=== PATIENT | male | born 1980 | race African-American/Black ===

== ENCOUNTER 2017-12-06 20:15 | Inpatient (IN) | payer SELFPAY ==
[~2017-12-06] VITALS: Ht 182.9 cm; Wt 79.2 kg
[~2017-12-06 20:15] MED LIST: AMOX875T2 PO; IBUP-232 PO
[2017-12-06 20:16] VITALS: BP 131/65; PULSE 96; RESP 22; TEMP 103; O2SAT 97
[2017-12-06] MEDS ORDERED: ACETAMINOPHEN 325 MG TAB PO ONE (20:45)
--- NOTE | 2017-12-06 22:01 | RADRPT ---
EXAM DATE/TIME: 12/06/2017 21:07 [place] COMPARISON: No previous studies available for comparison. INDICATIONS : Left side chest pain. Fever. Cough. MEDICAL HISTORY : Smoker. SURGICAL HISTORY : None. ENCOUNTER: Initial ACUITY: 2 days PAIN SCORE: 10/10 LOCATION: Left chest FINDINGS: There is dense consolidation in the left upper lobe inferiorly and patchy basilar air space disease a s well. CONCLUSION: 1. Left upper lobe pneumonia measuring up to 13 cm in length with patchy perihilar and basilar bronch opneumonia as well. Mike Luna MD on December 06, 2017 at 21:58 Board Certified Radiologist. This report was verified electronically.
[2017-12-06 22:55] VITALS: BP 120/64; PULSE 83; RESP 16; TEMP 102.9; O2SAT 97
[2017-12-06 23:05] LABS: AUTOMATED NEUTROPHIL # 14.9 TH/MM3 (1.8-7.7); BASOPHIL % 0.3 % (0.0-2.0); HEMATOCRIT 37.4 % (39.0-51.0); HEMOGLOBIN 12.9 GM/DL (13.0-17.0); LYMPH % 6.7 % (9.0-44.0); LYMPHOCYTE # 1.2 TH/MM3 (1.0-4.8); MEAN CELL VOLUME 87.6 FL (80.0-100.0); MEAN CORPUSCULAR HEMOGLOBIN 30.1 PG (27.0-34.0); MEAN CORPUSCULAR HGB CONC 34.4 % (32.0-36.0); MEAN PLATELET VOLUME 8.3 FL (7.0-11.0); MONO % 6.1 % (0.0-8.0); NEUT % 86.9 % (16.0-70.0); PLATELET COUNT 192 TH/MM3 (150-450); RED BLOOD COUNT 4.27 MIL/MM3 (4.50-5.90); RED CELL DISTRIBUTION WIDTH 13.5 % (11.6-17.2); WHITE BLOOD COUNT 17.1 TH/MM3 (4.0-11.0)
--- NOTE | 2017-12-06 23:05 | PD ---
HPI Chief Complaint: Fever Time Seen by Provider: 22:52 Travel History International Travel<30 days: No Contact w/Intl Traveler<30days: No Traveled to known affect area: No History of Present Illness HPI 37-year-old male came to the emergency room with history of fever, cough, vomiting and body aches for 4-5 days. Patient says he has not feeling better. Patient had a temperature 103 in triage. There was workup initiated in triage. Patient appears to be in moderate distress. He was given Tylenol in triage and his repeat temperature is 102.5. Patient is awake and answering questions appropriately. He has history of cocaine and marijuana abuse. He is a smoker although he says he has not been able to smoke during his illness. He did not receive the flu shot. He also has some left-sided chest pain worse upon inspiration. [facility] Past Medical History Narrative Medical List of his past medical, surgical, social and family history is reviewed from the nursing note. Blood Disorders: No Cancer: No Cardiovascular Problems: No Chemotherapy: No Diminished Hearing: No Endocrine: No Genitourinary: No Immune Disorder: No Musculoskeletal: No Neurologic: No Psychiatric: No Respiratory: No Radiation Therapy: No Past Surgical History AICD: No Joint Replacement: No Neurologic Surgery: Yes (BRAIN SURGERY) Pacemaker: No Other Surgery: Yes Social History Alcohol Use: Yes (EVERY OTHER DAY) Tobacco Use: Yes (1/2PPD) Substance Use: Yes (COCAINE,MARIJUANA) Allergies-Medications (Allergen,Severity, Reaction): Coded Allergies: No Known Allergies (Verified Adverse Reaction, Unknown, 12/06/17) Comments No known drug allergies. Reported Meds & Prescriptions Reported Meds & Active Scripts Active Narrative Medication List of his home medications reviewed from the nursing note. Review of Systems Except as stated in HPI: all other systems reviewed are Neg General / Constitutional: Positive: Fever, Chills Gastrointestinal: Positive: Nausea, Vomiting Musculoskeletal: Positive: Myalgias Physical Exam Narrative GENERAL: Awake, alert, moderate distress SKIN: Focused skin assessment warm/dry. HEAD: Atraumatic. Normocephalic. EYES: Pupils equal and round. No scleral icterus. No injection or drainage. ENT: No nasal bleeding or discharge. Mucous membranes pink and moist. NECK: Trachea midline. No JVD. CARDIOVASCULAR: Regular rate and rhythm. No murmur appreciated. RESPIRATORY: Tachypnea. Clear to auscultation. Breath sounds equal bilaterally. GASTROINTESTINAL: Abdomen soft, non-tender, nondistended. Hepatic and splenic margins not palpable. MUSCULOSKELETAL: No obvious deformities. No clubbing. No cyanosis. No edema. NEUROLOGICAL: Awake and alert. No obvious cranial nerve deficits. Motor grossly within normal limits. Normal speech. PSYCHIATRIC: Appropriate mood and affect; insight and judgment normal. Data Data Last Documented VS Vital Signs Date Time Temp Pulse Resp B/P (MAP) Pulse Ox O2 Delivery O2 Flow Rate FiO2 12/07/17 00:03 16 12/06/17 22:55 102.9 83 120/64 (82) 97 Nasal Cannula 2.00 Orders Orders Electrocardiogram (12/06/17 20:36) Basic Metabolic Panel (Bmp) (12/06/17 20:36) Ckmb (Isoenzyme) Profile (12/06/17 20:36) Complete Blood Count With Diff (12/06/17 20:36) Troponin I (12/06/17 20:36) Chest, Pa & Lat (12/06/17 20:36) Influenzae A/B Antigen (12/06/17 20:36) Urinalysis - C+S If Indicated (12/06/17 20:36) Acetaminophen (Tylenol) (12/06/17 20:45) Lactic Acid (12/06/17 22:58) Blood Culture (12/06/17 22:58) Ceftriaxone Inj (Rocephin Inj) (12/06/17 23:15) Azithromycin Inj (Zithromax Inj) (12/06/17 23:15) Sodium Chlor 0.9% 1000 Ml Inj (Ns 1000 M (12/06/17 23:15) Sodium Chlor 0.9% 1000 Ml Inj (Ns 1000 M (12/06/17 23:15) Ibuprofen (Motrin) (12/06/17 23:15) CKMB (12/06/17 22:50) CKMB% (12/06/17 22:50) Admit Order (Ed Use Only) (12/07/17 00:14) Labs Laboratory Tests Test 12/06/17 22:41 12/06/17 22:50 12/06/17 23:10 Urine Color YELLOW Urine Turbidity CLEAR Urine pH 6.0 Urine Specific [place] 1.012 Urine Protein 100 mg/dL Urine Glucose (UA) NEG mg/dL Urine Ketones NEG mg/dL Urine Occult Blood MOD Urine Nitrite NEG Urine Bilirubin NEG Urine Urobilinogen 4.0 MG/DL Urine Leukocyte Esterase NEG Urine RBC LESS THAN 1 /hpf Urine WBC 1 /hpf Urine Mucus FEW /lpf Microscopic Urinalysis Comment CULT NOT INDICATED White Blood Count 17.1 TH/MM3 Red Blood Count 4.27 MIL/MM3 Hemoglobin 12.9 GM/DL Hematocrit 37.4 % Mean Corpuscular Volume 87.6 FL Mean Corpuscular Hemoglobin 30.1 PG Mean Corpuscular Hemoglobin Concent 34.4 % Red Cell Distribution Width 13.5 % Platelet Count 192 TH/MM3 Mean Platelet Volume 8.3 FL Neutrophils (%) (Auto) 86.9 % Lymphocytes (%) (Auto) 6.7 % Monocytes (%) (Auto) 6.1 % Eosinophils (%) (Auto) 0.0 % Basophils (%) (Auto) 0.3 % Neutrophils # (Auto) 14.9 TH/MM3 Lymphocytes # (Auto) 1.2 TH/MM3 Monocytes # (Auto) 1.0 TH/MM3 Eosinophils # (Auto) 0.0 TH/MM3 Basophils # (Auto) 0.0 TH/MM3 CBC Comment AUTO DIFF Differential Total Cells Counted 100 Neutrophils % (Manual) 62 % Band Neutrophils % 24 % Lymphocytes % 6 % Monocytes % 5 % Neutrophils # (Manual) 15.2 TH/MM3 Metamyelocytes 3 % Differential Comment FINAL DIFF MANUAL Toxic Vacuolation PRESENT Dohle Bodies PRESENT Platelet Estimate NORMAL Platelet Morphology Comment NORMAL Red Cell Morphology Comment NORMAL Blood Urea Nitrogen 10 MG/DL Creatinine 1.01 MG/DL Random Glucose 112 MG/DL Calcium Level 8.7 MG/DL Sodium Level 135 MEQ/L Potassium Level 3.4 MEQ/L Chloride Level 99 MEQ/L Carbon Dioxide Level 27.2 MEQ/L Anion Gap 9 MEQ/L Estimat Glomerular Filtration Rate 100 ML/MIN Total Creatine Kinase 701 U/L Creatine Kinase MB LESS THAN 0.5 NG/ML Creatine Kinase MB % 0.1 % Troponin I LESS THAN 0.02 NG/ML Lactic Acid Level 1.1 mmol/L MDM Medical Decision Making Medical Screen Exam Complete: Yes Emergency Medical Condition: Yes Medical Record Reviewed: Yes Differential Diagnosis Pneumonia, sepsis, influenza Narrative Course 12:20 AM blood test results are back. Patient has significant leukocytosis with bandemia. Chest x-ray suggestive of a large infiltrate on the left side. Influenza is come back positive as well. I have decided to give the patient IV Zithromax and Rocephin since lactic acid was within normal limit. He is also receiving 2 L of IV fluid bolus. Given the fact that his symptoms have started 4-5 days ago he is out of the benefit window for Tamiflu. I would like to admit this patient. Awaiting for the residents to call back. Procedures EKG Prior to Arrival: No Sepsis Criteria SIRS Criteria (2 or more): Temp > 100.9 or < 96.8, Heart rate over 90, RR > 20 or PaCO2 < 32, WBC > 26021, < 4000 or > 10% bands Sepsis Criteria (SIRS+source): Infect source susp/known Diagnosis Primary Impression: SIRS (systemic inflammatory response syndrome) Additional Impressions: Pneumonia Qualified Codes: J18.1 - Lobar pneumonia, unspecified organism Influenza A Admitting Information Admitting Physician Requests: Admit Scripts Hydrocodone-Homatropine Liq (Hydrocodone-Homatropine Liq) 5-1.5 Mg/5 Ml Syrp 5 ML PO Q8HR Y for COUGH, #75 ML 0 Refills Prov: Vinny Bar MD 12/10/17 Cefuroxime (Cefuroxime) 500 Mg Tab 500 MG PO BID for Infection for 6 Days, #12 TAB 0 Refills Prov: Vinny Bar MD 12/09/17 Rayshawn Chahal MD Dec 06, 2017 23:05
[2017-12-06 23:07] LABS: BILIRUBIN, URINE NEG (NEG); BLOOD, URINE MOD (NEG); GLUCOSE,URINE NEG (NEG); KETONE, URINE NEG (NEG); MUCUS URINE FEW /lpf (OCC); NITRITE,URINE NEG (NEG); URINE COLOR YELLOW (YELLW/STRAW); URINE LEUKOCYTE ESTERASE NEG (NEG)
[2017-12-06] MEDS ORDERED: cefTRIAXone INJ 1,000 MG in SODIUM CHLORIDE 0.9% INJ 100 ML IV ONE (23:15)
[2017-12-06] MEDS ORDERED: IBUPROFEN 800 MG TAB PO ONE (23:15)
[2017-12-06] MEDS ORDERED: SODIUM CHLOR 0.9% 1000 ML INJ 1,000 ML IV ONE ×2 (23:15)
[2017-12-06] MEDS ORDERED: AZITHROMYCIN INJ 500 MG in SODIUM CHLOR 0.9% 250 ML INJ 250 ML IV ONE (23:15)
[2017-12-06 23:28] LABS: BICARBONATE 27.2 MEQ/L (21.0-32.0); BLOOD UREA NITROGEN 10 MG/DL (7-18); CALCIUM 8.7 MG/DL (8.5-10.1); CHLORIDE 99 MEQ/L (98-107); CREATININE 1.01 MG/DL (0.60-1.30); GLOMERULAR FILTRATION RATE 100 ML/MIN (>89); GLUCOSE,RANDOM 112 MG/DL (74-106); SODIUM (NA) 135 MEQ/L (136-145); TROPONIN I LESS THAN 0.02 NG/ML (0.02-0.05)
[2017-12-06 23:40] LABS: BANDS 24 % (0-6); LYMPHOCYTES 6 % (9-44); METAMYELOCYTES 3 % (0-1); MONOCYTES 5 % (0-8); NEUTROPHIL # MANUAL DIFF 15.2 TH/MM3 (1.8-7.7); POLYS (SEG NEUTROPHILS) 62 % (16-70)
[2017-12-06 23:41] LABS: TOXIC VACUOLATION PRESENT (NONE SEEN)
[2017-12-06 23:42] LABS: DOHLE BODIES PRESENT (NONE SEEN)
[2017-12-07] VITALS (13 sets, daily range): BP systolic 101–129; BP diastolic 60–83; PULSE 67–85; RESP 16–18; TEMP 98.1–99.9; O2SAT 95–98
[2017-12-07] MEDS ORDERED: RESP: ALBUTEROL 2.5 MG/IPRATROPIUM 0.5 MG NEB (PRN) INH (01:15)
[2017-12-07] MEDS ORDERED: SODIUM CHLORIDE 0.9% FLUSH 10 ML FLUSH IV FLUSH PRN (01:15)
[2017-12-07] MEDS ORDERED: ONDANSETRON HCL 4 MG/2 ML VIAL IV PUSH PRN (01:15)
[2017-12-07] MEDS: HEPARIN SODIUM - SQ 10,000 UNITS/ML VIAL SQ SCH ×2 (01:37→12:25)
[2017-12-07] MEDS: RESP: ALBUTEROL 2.5 MG/IPRATROPIUM 0.5 MG NEB (SCH) INH ×4 (02:37→21:25)
[2017-12-07] MEDS: SODIUM CHLORIDE 0.9% FLUSH 10 ML FLUSH IV FLUSH SCH ×2 (07:51→20:38)
--- NOTE | 2017-12-07 11:02 | HHI.HP ---
[facility] Service [facility] Primary Care Physician No Primary Care Physician Admission Diagnosis SIRS, pneumonia, influenza Diagnoses: (1) Sepsis Diagnosis: Principal (2) Influenza A Diagnosis: Principal (3) Pneumonia Diagnosis: Principal (4) Tobacco abuse Diagnosis: Secondary Travel History International Travel<30 Days: No Contact w/Intl Traveler <30 Da: No Traveled to Known Affected Are: No History of Present Illness Mr. Marquez is a 37-year-old male. He came in the hospital secondary to global malaise and fever. He's been having a cough. Imaging shows pneumonia. He also meets sepsis criteria with tachycardia, fever, leukocytosis, and infection source. No severe sepsis or septic shock. She has also had some diarrhea intermittently. No other complaints. Review of Systems Constitutional: COMPLAINS OF: Diaphoretic episodes, Fatigue, Fever, Chills, Night Sweats Endocrine: COMPLAINS OF: Heat/cold intolerance, DENIES: Polydipsia, Polyuria Eyes: DENIES: Blurred vision, Diplopia, Eye inflammation, Eye pain Ears, nose, mouth, throat: DENIES: Tinnitus, Hearing loss, Vertigo, Nasal discharge Respiratory: COMPLAINS OF: Cough, Shortness of breath, DENIES: Wheezing Cardiovascular: DENIES: Chest pain, Palpitations, Syncope Gastrointestinal: COMPLAINS OF: Diarrhea, DENIES: Abdominal pain, Black stools , Bloody stools, Nausea, Vomiting Musculoskeletal: DENIES: Joint pain, Muscle aches, Stiffness, Joint Swelling Integumentary: DENIES: Abnormal pigmentation, Nail changes, Pruritus, Rash Hematologic/lymphatic: DENIES: Bruising, Lymphadenopathy Immunologic/allergic: DENIES: Eczema, Urticaria Neurologic: DENIES: Abnormal gait, Headache, Paresthesias Psychiatric: DENIES: Anxiety, Confusion, Hallucinations Past Family Social History Past Medical History None Past Surgical History History of brain surgery, patient cannot specify Reported Medications Reported Meds & Active Scripts Active No Active Prescriptions or Reported Medications Allergies: Coded Allergies: No Known Allergies (Verified Adverse Reaction, Unknown, 12/06/17) Active Ordered Medications Administered Medications Medications (Trade) Dose Ordered Sig/Omar Route PRN Reason Start Time Stop Time Status Last Admin Dose Admin Sodium Chloride (NS Flush) 2 ml BID IV FLUSH 12/07/17 09:00 12/07/17 07:51 Albuterol/ Ipratropium (Duoneb Neb) 1 ampule Q6HR NEB INH 12/07/17 04:00 12/07/17 10:00 Heparin Sodium (Porcine) (Heparin Inj) 5,000 units Q12H SQ 12/07/17 01:15 12/07/17 01:37 Family History Patient reports no known family medical history Social History Alcohol use approximately every other day One half pack per day smoking and continues Intermittent use of cocaine and marijuana Physical Exam Vital Signs Vital Signs Date Time Temp Pulse Resp B/P (MAP) Pulse Ox O2 Delivery O2 Flow Rate FiO2 12/07/17 09:21 98.2 78 18 112/60 (77) 98 Room Air 12/07/17 07:30 99.0 76 18 108/66 (80) 98 Room Air 12/07/17 07:30 78 20 98 Room Air 12/07/17 05:55 99.0 67 16 117/70 (86) 97 Room Air 12/07/17 02:38 95 21 12/07/17 02:31 68 16 101/60 (74) 96 Room Air 12/07/17 01:32 99.9 12/07/17 01:11 97 Nasal Cannula 2.00 12/07/17 00:03 16 12/06/17 23:24 16 12/06/17 22:55 102.9 83 16 120/64 (82) 97 Nasal Cannula 2.00 12/06/17 20:16 103.0 96 22 131/65 (87) 97 Room Air Physical Exam GENERAL: NAD, A&Ox3 HEAD: Normocephalic. NECK: Supple, trachea midline. No lymphadenopathy. EYES: No scleral icterus. No injection or drainage. CARDIOVASCULAR: Regular rate and rhythm without murmurs, gallops, or rubs. RESPIRATORY: Breath sounds equal bilaterally. No accessory muscle use. GASTROINTESTINAL: Abdomen soft, non-tender, nondistended. MUSCULOSKELETAL: No cyanosis, or edema. SKIN: Warm and dry. NEURO: No focal neurological deficitis. Laboratory Laboratory Tests Test 12/06/17 22:41 12/06/17 22:50 12/06/17 23:10 Urine Color YELLOW Urine Turbidity CLEAR Urine pH 6.0 Urine Specific [place] 1.012 Urine Protein 100 Urine Glucose (UA) NEG Urine Ketones NEG Urine Occult Blood MOD Urine Nitrite NEG Urine Bilirubin NEG Urine Urobilinogen 4.0 Urine Leukocyte Esterase NEG Urine RBC LESS THAN 1 Urine WBC 1 Urine Mucus FEW Microscopic Urinalysis Comment CULT NOT INDICATED White Blood Count 17.1 Red Blood Count 4.27 Hemoglobin 12.9 Hematocrit 37.4 Mean Corpuscular Volume 87.6 Mean Corpuscular Hemoglobin 30.1 Mean Corpuscular Hemoglobin Concent 34.4 Red Cell Distribution Width 13.5 Platelet Count 192 Mean Platelet Volume 8.3 Neutrophils (%) (Auto) 86.9 Lymphocytes (%) (Auto) 6.7 Monocytes (%) (Auto) 6.1 Eosinophils (%) (Auto) 0.0 Basophils (%) (Auto) 0.3 Neutrophils # (Auto) 14.9 Lymphocytes # (Auto) 1.2 Monocytes # (Auto) 1.0 Eosinophils # (Auto) 0.0 Basophils # (Auto) 0.0 CBC Comment AUTO DIFF Differential Total Cells Counted 100 Neutrophils % (Manual) 62 Band Neutrophils % 24 Lymphocytes % 6 Monocytes % 5 Neutrophils # (Manual) 15.2 Metamyelocytes 3 Differential Comment FINAL DIFF MANUAL Toxic Vacuolation PRESENT Dohle Bodies PRESENT Platelet Estimate NORMAL Platelet Morphology Comment NORMAL Red Cell Morphology Comment NORMAL Blood Urea Nitrogen 10 Creatinine 1.01 Random Glucose 112 Calcium Level 8.7 Sodium Level 135 Potassium Level 3.4 Chloride Level 99 Carbon Dioxide Level 27.2 Anion Gap 9 Estimat Glomerular Filtration Rate 100 Total Creatine Kinase 701 Creatine Kinase MB LESS THAN 0.5 Creatine Kinase MB % 0.1 Troponin I LESS THAN 0.02 Lactic Acid Level 1.1 Date/Time Source Procedure Growth Status 12/06/17 23:10 Blood Peripheral Aerobic Blood Culture Pending Received 12/06/17 23:10 Blood Peripheral Anaerobic Blood Culture Pending Received 12/06/17 22:30 Nasal Aspirate Influenza Types A,B Antigen (RITA) - Final Positive For Flu A Antigen Complete Result Diagram: 12/06/17224912/06/172249 Septic Shock Reassessment Septic shock perfusion: reassessment completed Caprini VTE Risk Assessment Caprini VTE Risk Assessment: No/Low Risk (score <= 1) Caprini Risk Assessment Model Point Value = 1 Point Value = 2 Point Value = 3 Point Value = 5 Age 41-60 Minor surgery BMI > 25 kg/m2 Swollen legs Varicose veins or History of unexplained or recurrent spontaneous Oral contraceptives or hormone replacement Sepsis (< 1 month) Serious lung disease, including pneumonia (< 1 month) Abnormal pulmonary function Acute myocardial infarction Congestive heart failure (< 1 month) History of inflammatory bowel disease Medical patient at bed rest Age 61-74 Arthroscopic surgery Major open surgery (> 45 min) Laparoscopic surgery (> 45 min) Malignancy Confined to bed (> 72 hours) Immobilizing plaster cast Central venous access Age >= 75 History of VTE Family history of VTE Factor V Leiden Prothrombin [id number] Lupus anticoagulant Anticardiolipin antibodies Elevated serum homocysteine Heparin-induced thrombocytopenia Other congenital or acquired thrombophilia Stroke (< 1 month) Elective arthroplasty Hip, pelvis, or leg fracture Acute spinal cord injury (< 1 month) Prophylaxis Regimen Total Risk Factor Score Risk Level Prophylaxis Regimen 0-1 Low Early ambulation 2 Moderate Order ONE of the following: *Sequential Compression Device (SCD) *Heparin 5000 units SQ BID 3-4 Higher Order ONE of the following medications: *Heparin 5000 units SQ TID *Enoxaparin/Lovenox 40 mg SQ daily (WT < 150 kg, CrCl > 30 mL/min) *Enoxaparin/Lovenox 30 mg SQ daily (WT < 150 kg, CrCl > 10-29 mL/min) *Enoxaparin/Lovenox 30 mg SQ BID (WT < 150 kg, CrCl > 30 mL/min) AND/OR *Sequential Compression Device (SCD) 5 or more Highest Order ONE of the following medications: *Heparin 5000 units SQ TID (Preferred with Epidurals) *Enoxaparin/Lovenox 40 mg SQ daily (WT < 150 kg, CrCl > 30 mL/min) *Enoxaparin/Lovenox 30 mg SQ daily (WT < 150 kg, CrCl > 10-29 mL/min) *Enoxaparin/Lovenox 30 mg SQ BID (WT < 150 kg, CrCl > 30 mL/min) AND *Sequential Compression Device (SCD) Assessment and Plan Problem List: (1) Sepsis ICD Code: A41.9 - Sepsis, unspecified organism (2) Tobacco abuse ICD Code: Z72.0 - Tobacco use Status: Acute (3) SIRS (systemic inflammatory response syndrome) ICD Code: R65.10 - Systemic inflammatory response syndrome (SIRS) of non- infectious origin without acute organ dysfunction Status: Acute (4) Influenza A ICD Code: J10.1 - Influenza due to other identified influenza virus with other respiratory manifestations Status: Acute (5) Pneumonia ICD Code: J18.9 - Pneumonia, unspecified organism Status: Acute Assessment and Plan 37-year-old male admitted secondary to sepsis, pneumonia, and influenza Sepsis Improving thus far Treat underlying infection Follow vital signs closely Pneumonia Influenza A Azithromycin Rocephin Oxygen supplementation as needed Monitor clinically for improvement Alcohol use Nicotine use Cocaine use Marijuana use Follow for withdraws Patient counseled to quit Multivitamin supplement DVT prophylaxis Heparin Physician Certification 2 Midnight Certification Type: Admission for Inpatient Services Order for Inpatient Services The services are ordered in accordance with Medicare regulations or non- Medicare payer requirements, as applicable. In the case of services not specified as inpatient-only, they are appropriately provided as inpatient services in accordance with the 2-midnight benchmark. Estimated LOS (days): 3 days is the estimated time the patient will need to remain in the hospital, assuming treatment plan goals are met and no additional complications. Post-Hospital Plan: Home Problem Qualifiers (1) Pneumonia: Qualified Codes: J18.1 - Lobar pneumonia, unspecified organism Ramon Garcia MD Dec 07, 2017 11:02
--- NOTE | 2017-12-07 12:14 | EKG ---
Date Performed: 12/06/2017 Time Performed: 22:32:45 PTAGE: 37 years EKG: Sinus rhythm VOLTAGE CRITERIA FOR LVH ABNORMAL ECG PREVIOUS TRACING : 03/12/2015 03.47 Since the prior tracing, there has been no significant goodman DOCTOR: Karl Poon Interpretating Date/Time 12/07/2017 12:14:06
[2017-12-07] MEDS: LACTOBACILLUS ACIDOPHILUS TAB PO SCH ×2 (12:25→16:37)
[2017-12-07] MEDS: guaiFENesin/DEXTROMETHORPHAN 200 MG/20 MG/10 ML CUP PO PRN ×2 (15:50→20:37)
[2017-12-07] MEDS ORDERED: LORazepam 2 MG/ML VIAL IV PUSH PRN ×4 (19:45)
[2017-12-07] MEDS ORDERED: LORazepam 1 MG TAB PO PRN (19:45)
[2017-12-07] MEDS ORDERED: FLUMAZENIL 0.5 MG/5 ML VIAL IV PUSH PRN (19:45)
[2017-12-07] MEDS ORDERED: LORazepam 2 MG TAB PO PRN (19:45)
[2017-12-07] MEDS ORDERED: POTASSIUM CHLORIDE 20 MEQ CONTROLLED RELEASE TAB PO ONE (19:45)
[2017-12-07] MEDS: ACETAMINOPHEN 325 MG TAB PO PRN (20:37)
[2017-12-08] VITALS (8 sets, daily range): BP systolic 114–131; BP diastolic 58–96; PULSE 63–78; RESP 18–20; TEMP 97.3–99.5; O2SAT 95–98
[2017-12-08] MEDS: cefTRIAXone INJ 1,000 MG in SODIUM CHLORIDE 0.9% INJ 100 ML IV SCH ×2 (00:21→23:21)
[2017-12-08] MEDS: AZITHROMYCIN INJ 500 MG in SODIUM CHLOR 0.9% 250 ML INJ 250 ML IV SCH (01:32)
[2017-12-08] MEDS: HEPARIN SODIUM - SQ 10,000 UNITS/ML VIAL SQ SCH ×2 (01:32→13:28)
[2017-12-08] MEDS: RESP: ALBUTEROL 2.5 MG/IPRATROPIUM 0.5 MG NEB (SCH) INH ×4 (03:28→21:28)
[2017-12-08 07:49] LABS: AUTOMATED NEUTROPHIL # 9.8 TH/MM3 (1.8-7.7); BASOPHIL % 0.1 % (0.0-2.0); EOSINOPHIL # 0.1 TH/MM3 (0-0.4); EOSINOPHIL % 0.4 % (0.0-4.0); HEMATOCRIT 34.6 % (39.0-51.0); HEMOGLOBIN 11.8 GM/DL (13.0-17.0); LYMPH % 10.6 % (9.0-44.0); LYMPHOCYTE # 1.3 TH/MM3 (1.0-4.8); MEAN CELL VOLUME 87.5 FL (80.0-100.0); MEAN CORPUSCULAR HEMOGLOBIN 29.9 PG (27.0-34.0); MEAN CORPUSCULAR HGB CONC 34.2 % (32.0-36.0); MEAN PLATELET VOLUME 9.3 FL (7.0-11.0); MONO % 5.7 % (0.0-8.0); MONOCYTE # 0.7 TH/MM3 (0-0.9); NEUT % 83.2 % (16.0-70.0); PLATELET COUNT 181 TH/MM3 (150-450); RED BLOOD COUNT 3.95 MIL/MM3 (4.50-5.90); RED CELL DISTRIBUTION WIDTH 13.5 % (11.6-17.2); WHITE BLOOD COUNT 11.8 TH/MM3 (4.0-11.0)
[2017-12-08 08:06] LABS: ALBUMIN 2.5 GM/DL (3.4-5.0); ALT (GPT) 21 U/L (12-78); AST (GOT) 22 U/L (15-37); BICARBONATE 24.3 MEQ/L (21.0-32.0); BLOOD UREA NITROGEN 8 MG/DL (7-18); CHLORIDE 111 MEQ/L (98-107); CREATININE 0.72 MG/DL (0.60-1.30); GLOMERULAR FILTRATION RATE 148 ML/MIN (>89); GLUCOSE,RANDOM 98 MG/DL (74-106); SODIUM (NA) 142 MEQ/L (136-145)
[2017-12-08 08:11] LABS: ALKALINE PHOSPHATASE 249 U/L (45-117); TOTAL BILIRUBIN ADULT 0.3 MG/DL (0.2-1.0); TOTAL PROTEIN 6.7 GM/DL (6.4-8.2)
[2017-12-08] MEDS: MULTIVITAMIN TAB PO SCH (08:41)
[2017-12-08] MEDS: LACTOBACILLUS ACIDOPHILUS TAB PO SCH ×3 (08:41→18:10)
[2017-12-08] MEDS: guaiFENesin/DEXTROMETHORPHAN 200 MG/20 MG/10 ML CUP PO PRN (08:43)
[2017-12-08] MEDS: SODIUM CHLORIDE 0.9% FLUSH 10 ML FLUSH IV FLUSH SCH ×2 (08:44→20:02)
[2017-12-08] MEDS: ACETAMINOPHEN 325 MG TAB PO PRN (08:53)
--- NOTE | 2017-12-08 13:01 | HHI.PR ---
Subjective Remarks feeling better- appetite coming back + cough- minimal sputum body aches better Objective Vitals Vital Signs Date Time Temp Pulse Resp B/P (MAP) Pulse Ox O2 Delivery O2 Flow Rate FiO2 12/08/17 12:28 98.6 65 20 117/59 (78) 96 12/08/17 08:48 98.6 73 20 125/96 (106) 96 12/08/17 05:26 98.0 77 18 114/67 (83) 95 12/08/17 04:41 21 12/08/17 00:24 97.3 78 18 130/66 (87) 96 12/07/17 21:25 98.5 85 18 129/69 (89) 96 12/07/17 16:13 98 12/07/17 16:00 99.5 76 18 123/70 (87) 97 12/07/17 15:00 98.8 72 18 124/83 (97) 98 I/O 12/07/17 12/07/17 12/07/17 12/08/17 12/08/17 12/08/17 07:00 15:00 23:00 07:00 15:00 23:00 Intake Total 2350 ml 700 ml 120 ml 350 ml Balance 2350 ml 700 ml 120 ml 350 ml Intake Oral 700 ml 120 ml IV Total 2350 ml 350 ml # Voids 1 2 # Bowel Movements 0 Result Diagram: 12/08/17 0650 12/08/17 0650 Imaging Last Impressions Chest X-Ray 12/06/172035 Signed Impressions: Service Date/Time: Wednesday, December 06, 2017 21:07 - CONCLUSION: 1. Left upper lobe pneumonia measuring up to 13 cm in length with patchy perihilar and basilar bronchopneumonia as well. Mike Luna MD Objective Remarks awake and alert, oriented x 3 anicteric, no nuchal rigidity throat no exudates no rales regular rhythm abdomen soft, nontender extremities no edema neuro exam unremarkable A/P Problem List: (1) Sepsis ICD Code: A41.9 - Sepsis, unspecified organism (2) Tobacco abuse ICD Code: Z72.0 - Tobacco use Status: Acute (3) SIRS (systemic inflammatory response syndrome) ICD Code: R65.10 - Systemic inflammatory response syndrome (SIRS) of non- infectious origin without acute organ dysfunction Status: Acute (4) Influenza A ICD Code: J10.1 - Influenza due to other identified influenza virus with other respiratory manifestations Status: Acute (5) Pneumonia ICD Code: J18.9 - Pneumonia, unspecified organism Status: Acute Assessment and Plan 37-year-old male admitted secondary to sepsis, pneumonia, and influenza Sepsis - clinically improving Left upper Pneumonia Influenza A Azithromycin Rocephin - patient out of window for Tamiflu Oxygen supplementation as needed Alcohol use Nicotine use Cocaine use Marijuana use Follow for withdraws- no sign of DTs Patient counseled to quit Multivitamin supplement DVT prophylaxis Heparin UP and ambulating if continues to improve- DC tomorrow Problem Qualifiers (1) Pneumonia: Qualified Codes: J18.1 - Lobar pneumonia, unspecified organism Vinny Bar MD Dec 08, 2017 13:01
[2017-12-08] MEDS: guaiFENesin E.R. 600 MG TAB PO SCH ×2 (13:31→20:02)
[2017-12-09] VITALS (11 sets, daily range): BP systolic 115–125; BP diastolic 58–92; PULSE 58–97; RESP 18–20; TEMP 98.5–100; O2SAT 92–98
[2017-12-09] MEDS: AZITHROMYCIN INJ 500 MG in SODIUM CHLOR 0.9% 250 ML INJ 250 ML IV SCH (00:11)
[2017-12-09] MEDS: HEPARIN SODIUM - SQ 10,000 UNITS/ML VIAL SQ SCH ×2 (02:19→12:19)
[2017-12-09] MEDS: RESP: ALBUTEROL 2.5 MG/IPRATROPIUM 0.5 MG NEB (SCH) INH ×3 (02:49→16:22)
[2017-12-09] MEDS: MULTIVITAMIN TAB PO SCH (08:33)
[2017-12-09] MEDS: guaiFENesin E.R. 600 MG TAB PO SCH ×2 (08:33→21:29)
[2017-12-09] MEDS: LACTOBACILLUS ACIDOPHILUS TAB PO SCH ×3 (08:33→17:02)
[2017-12-09] MEDS: SODIUM CHLORIDE 0.9% FLUSH 10 ML FLUSH IV FLUSH SCH ×2 (08:35→21:29)
--- NOTE | 2017-12-09 09:31 | HHI.PR ---
Subjective Remarks intermittent cough- non productive feels stronger but achy no nausea or vomiting , diarrhea Objective Vitals Vital Signs Date Time Temp Pulse Resp B/P (MAP) Pulse Ox O2 Delivery O2 Flow Rate FiO2 12/09/17 08:27 99.0 97 18 117/92 (100) 92 12/09/17 04:58 98.5 91 18 120/66 (84) 94 12/09/17 02:58 96 12/09/17 01:14 100.0 79 18 115/58 (77) 97 12/09/17 00:00 73 12/08/17 21:18 99.5 66 18 127/76 (93) 97 12/08/17 20:00 65 12/08/17 17:20 97.9 63 20 131/58 (82) 98 12/08/17 17:15 96 12/08/17 12:28 98.6 65 20 117/59 (78) 96 I/O 12/08/17 12/08/17 12/08/17 12/09/17 12/09/17 12/09/17 07:00 15:00 23:00 07:00 15:00 23:00 Intake Total 350 ml 720 ml 100 ml 250 ml Balance 350 ml 720 ml 100 ml 250 ml Intake Oral 720 ml IV Total 350 ml 100 ml 250 ml # Voids 2 Result Diagram: 12/08/17 0650 12/08/17 0650 Imaging Last Impressions Chest X-Ray 12/06/172035 Signed Impressions: Service Date/Time: Wednesday, December 06, 2017 21:07 - CONCLUSION: 1. Left upper lobe pneumonia measuring up to 13 cm in length with patchy perihilar and basilar bronchopneumonia as well. Mike Luna MD Objective Remarks awake and alert, oriented x 3 anicteric, no nuchal rigidity throat no exudates no rales, no wheezes regular rhythm abdomen soft, nontender extremities no edema neuro exam unremarkable A/P Problem List: (1) Sepsis ICD Code: A41.9 - Sepsis, unspecified organism (2) Tobacco abuse ICD Code: Z72.0 - Tobacco use Status: Acute (3) SIRS (systemic inflammatory response syndrome) ICD Code: R65.10 - Systemic inflammatory response syndrome (SIRS) of non- infectious origin without acute organ dysfunction Status: Acute (4) Influenza A ICD Code: J10.1 - Influenza due to other identified influenza virus with other respiratory manifestations Status: Acute (5) Pneumonia ICD Code: J18.9 - Pneumonia, unspecified organism Status: Acute Assessment and Plan 37-year-old male admitted secondary to sepsis, pneumonia, and influenza Sepsis - clinically improving - though with low grade fever early am - blood cultures negative so far Left upper Pneumonia Influenza A Azithromycin Rocephin - patient out of window for Tamiflu Oxygen supplementation as needed on Mucinex- add robitussion with codeine Alcohol use Nicotine use Cocaine use Marijuana use Follow for withdraws- no sign of DTs Patient counseled to quit Multivitamin supplement DVT prophylaxis Heparin UP and ambulating if continues to improve- DC tomorrow Problem Qualifiers (1) Pneumonia: Qualified Codes: J18.1 - Lobar pneumonia, unspecified organism Vinny Bar MD Dec 09, 2017 09:31
[2017-12-09 11:59] LABS: AUTOMATED NEUTROPHIL # 3.9 TH/MM3 (1.8-7.7); BASOPHIL % 0.5 % (0.0-2.0); EOSINOPHIL # 0.1 TH/MM3 (0-0.4); EOSINOPHIL % 1.3 % (0.0-4.0); HEMATOCRIT 36.1 % (39.0-51.0); HEMOGLOBIN 12.1 GM/DL (13.0-17.0); LYMPH % 21.8 % (9.0-44.0); LYMPHOCYTE # 1.2 TH/MM3 (1.0-4.8); MEAN CORPUSCULAR HEMOGLOBIN 29.6 PG (27.0-34.0); MEAN CORPUSCULAR HGB CONC 33.6 % (32.0-36.0); MEAN PLATELET VOLUME 8.2 FL (7.0-11.0); MONOCYTE # 0.5 TH/MM3 (0-0.9); NEUT % 68.4 % (16.0-70.0); PLATELET COUNT 247 TH/MM3 (150-450); RED CELL DISTRIBUTION WIDTH 13.6 % (11.6-17.2); WHITE BLOOD COUNT 5.7 TH/MM3 (4.0-11.0)
[2017-12-09] MEDS: CHLORPHENIR/HYDROCOD LIQUID 8 MG/10 MG/5 ML CUP PO SCH ×2 (12:20→21:29)
[2017-12-09] MEDS ORDERED: CEFU1TAB20 PO (14:44)
[2017-12-10] VITALS (7 sets, daily range): BP systolic 106–134; BP diastolic 58–72; PULSE 48–58; RESP 18–20; TEMP 98.6–99; O2SAT 93–97
[2017-12-10] MEDS: cefTRIAXone INJ 1,000 MG in SODIUM CHLORIDE 0.9% INJ 100 ML IV SCH (00:07)
[2017-12-10] MEDS: AZITHROMYCIN INJ 500 MG in SODIUM CHLOR 0.9% 250 ML INJ 250 ML IV SCH (01:06)
[2017-12-10] MEDS: HEPARIN SODIUM - SQ 10,000 UNITS/ML VIAL SQ SCH (01:06)
[2017-12-10] MEDS: RESP: ALBUTEROL 2.5 MG/IPRATROPIUM 0.5 MG NEB (SCH) INH ×2 (04:42→09:08)
--- NOTE | 2017-12-10 08:31 | HHI.PR ---
Subjective Remarks doing great no nausea or vomiting no body aches cough - almost "gone" Objective Vitals Vital Signs Date Time Temp Pulse Resp B/P (MAP) Pulse Ox O2 Delivery O2 Flow Rate FiO2 12/10/17 08:00 98.9 57 18 106/58 (74) 97 12/10/17 06:18 98.7 50 20 134/72 (92) 93 12/10/17 04:00 58 12/10/17 00:09 99.0 58 19 111/58 (75) 96 12/10/17 00:00 58 12/09/17 21:13 98.7 59 20 125/58 (80) 97 12/09/17 20:00 61 12/09/17 14:04 62 12/09/17 12:38 98.7 62 20 118/75 (89) 96 12/09/17 10:20 98 21 12/09/17 09:50 58 I/O 12/09/17 12/09/17 12/09/17 12/10/17 12/10/17 12/10/17 07:00 15:00 23:00 07:00 15:00 23:00 Intake Total 100 ml 250 ml Balance 100 ml 250 ml IV Total 100 ml 250 ml # Voids 1 Result Diagram: 12/09/17 1148 12/08/17 0650 Imaging Last Impressions Chest X-Ray 12/06/172035 Signed Impressions: Service Date/Time: Wednesday, December 06, 2017 21:07 - CONCLUSION: 1. Left upper lobe pneumonia measuring up to 13 cm in length with patchy perihilar and basilar bronchopneumonia as well. Mike Luna MD Objective Remarks awake and alert, oriented x 3 anicteric, no nuchal rigidity throat no exudates no rales, no wheezes regular rhythm abdomen soft, nontender extremities no edema neuro exam unremarkable Procedures none A/P Problem List: (1) Sepsis ICD Code: A41.9 - Sepsis, unspecified organism (2) Tobacco abuse ICD Code: Z72.0 - Tobacco use Status: Acute (3) SIRS (systemic inflammatory response syndrome) ICD Code: R65.10 - Systemic inflammatory response syndrome (SIRS) of non- infectious origin without acute organ dysfunction Status: Acute (4) Influenza A ICD Code: J10.1 - Influenza due to other identified influenza virus with other respiratory manifestations Status: Acute (5) Pneumonia ICD Code: J18.9 - Pneumonia, unspecified organism Status: Acute Assessment and Plan 37-year-old male admitted secondary to sepsis, pneumonia, and influenza Sepsis - clinically improving - though with low grade fever early am - blood cultures negative so far Left upper Pneumonia Influenza A Azithromycin Rocephin - patient out of window for Tamiflu Oxygen supplementation as needed on Mucinex- add robitussion with codeine Alcohol use Nicotine use Cocaine use Marijuana use Follow for withdraws- no sign of DTs Patient counseled to quit Multivitamin supplement DVT prophylaxis Heparin UP and ambulating if continues to improve- DC tomorrow Problem Qualifiers (1) Pneumonia: Qualified Codes: J18.1 - Lobar pneumonia, unspecified organism Vinny Bar MD Dec 10, 2017 08:31
[2017-12-10] MEDS ORDERED: TUSSSUS2 PO (08:34)
--- NOTE | 2017-12-10 08:36 | HHI.DS ---
Discharge Summary Admission Date Dec 07, 2017 at 00:16 Discharge Date: Dec 10, 2017 Admitting Diagnosis SIRS, pneumonia, influenza (1) Sepsis ICD Code: A41.9 - Sepsis, unspecified organism Diagnosis: Principal (2) Tobacco abuse ICD Code: Z72.0 - Tobacco use Diagnosis: Secondary Status: Acute (3) Influenza A ICD Code: J10.1 - Influenza due to other identified influenza virus with other respiratory manifestations Diagnosis: Principal Status: Acute (4) Pneumonia ICD Code: J18.9 - Pneumonia, unspecified organism Diagnosis: Principal Status: Acute Procedures none Brief History - From Admission Mr. Marquez is a 37-year-old male. He came in the hospital secondary to global malaise and fever. He's been having a cough. Imaging shows pneumonia. He also meets sepsis criteria with tachycardia, fever, leukocytosis, and infection source. No severe sepsis or septic shock. She has also had some diarrhea intermittently. No other complaints. CBC/BMP: 12/09/17 1148 12/08/17 0650 Significant Findings Laboratory Tests Test 12/08/17 06:50 12/09/17 11:48 White Blood Count 11.8 TH/MM3 (4.0-11.0) Red Blood Count 3.95 MIL/MM3 (4.50-5.90) 4.10 MIL/MM3 (4.50-5.90) Hemoglobin 11.8 GM/DL (13.0-17.0) 12.1 GM/DL (13.0-17.0) Hematocrit 34.6 % (39.0-51.0) 36.1 % (39.0-51.0) Neutrophils (%) (Auto) 83.2 % (16.0-70.0) Neutrophils # (Auto) 9.8 TH/MM3 (1.8-7.7) Albumin 2.5 GM/DL (3.4-5.0) Calcium Level 8.0 MG/DL (8.5-10.1) Alkaline Phosphatase 249 U/L (45-117) Chloride Level 111 MEQ/L (98-107) Imaging Last Impressions Chest X-Ray 12/06/172035 Signed Impressions: Service Date/Time: Wednesday, December 06, 2017 21:07 - CONCLUSION: 1. Left upper lobe pneumonia measuring up to 13 cm in length with patchy perihilar and basilar bronchopneumonia as well. Mike Luna MD PE at Discharge awake and alert, oriented x 3 anicteric, no nuchal rigidity throat no exudates no rales, no wheezes regular rhythm abdomen soft, nontender extremities no edema neuro exam unremarkable Pt update on day of discharge awake and alert, afebrile lungs clear, no wheezes, no rales throat no exudates aup and ambulating Hospital Course 37-year-old male admitted secondary to sepsis, pneumonia, and influenza Sepsis - clinically improving - though with low grade fever early am - blood cultures negative so far Left upper Pneumonia Influenza A Azithromycin Rocephin - patient out of window for Tamiflu Oxygen supplementation as needed on Mucinex- add robitussion with codeine Alcohol use Nicotine use Cocaine use Marijuana use Follow for withdraws- no sign of DTs Patient counseled to quit Multivitamin supplement DVT prophylaxis Heparin UP and ambulating DC today OP ff up with a PCP Encourage po fluids Pt Condition on Discharge: Stable Discharge Disposition: Discharge Home Discharge Time: <= 30 minutes Discharge Instructions DIET: Follow Instructions for: As Tolerated, No Restrictions Speech Therapy-Diet Recommends: Regular Activities you can perform: Weight Bearing as Padmini Follow up Referrals: PCP Follow-up - 1 Week with [facility] New Medications: Cefuroxime (Cefuroxime) 500 Mg Tab 500 MG PO BID for Infection for 6 Days, #12 TAB 0 Refills Hydrocodone-Homatropine Liq (Hydrocodone-Homatropine Liq) 5-1.5 Mg/5 Ml Syrp 5 ML PO Q8HR PRN for COUGH, #75 ML 0 Refills Vinny Bar MD Dec 10, 2017 08:36
[2017-12-10] MEDS: MULTIVITAMIN TAB PO SCH (08:44)
[2017-12-10] MEDS: guaiFENesin E.R. 600 MG TAB PO SCH (08:44)
[2017-12-10] MEDS: LACTOBACILLUS ACIDOPHILUS TAB PO SCH (08:44)
[2017-12-10] MEDS: SODIUM CHLORIDE 0.9% FLUSH 10 ML FLUSH IV FLUSH SCH (08:45)
[2017-12-10] MEDS: CHLORPHENIR/HYDROCOD LIQUID 8 MG/10 MG/5 ML CUP PO SCH (08:49)
[2017-12-10] MEDS ORDERED: HYDR5SYP10 PO (10:21)
== END 2017-12-10 13:33 | disposition home or self-care (01) | DRG 871 ==
LOC: NEPC 20:15 → NEDA 12-07 00:16 → NEDH 12-07 04:51 → N05B 12-07 15:23
PROVIDERS: ADMIT Hospitalist; ATTEND Internal Medicine
DX: A41.9 Sepsis, unspecified organism (principal); J09.X1 Influenza due to identified novel influenza A virus with pneumonia; J18.8 Other pneumonia, unspecified organism; F17.210 Nicotine dependence, cigarettes, uncomplicated
CPT/HCPCS: 71046; 80048; 80053; 81001; 82550; 82552; 83605; 84484; 85007; 85025; 85027; 87040; 87804; 93005; 94150; 94640; 94664; 96365; 96375; J0456; J0696; J1644; J2405; J7030; J7050